=== PATIENT | male | born 1980 | race Caucasian/White ===

== ENCOUNTER 2017-12-06 08:59 | Day surgery (SDC) | payer OTHER ==
[2017-12-05 09:59] VITALS: BMI 29.7
--- NOTE | 2017-12-06 02:04 | HP ---
HISTORY OF PRESENT ILLNESS: Mr. Akbar has a protracted course of right lower extremity, lumbar radi culopathy and manifest clearly with an L5 pattern of pain MRI on disk that reports a right-side d eccentric L4 disk protrusion, impacting the descending right L5 nerve root. We treated this quite completely conservative measures with medications, therapy, and injections, which have provided some limited relief, but nothing long lasting. He has been out of work for this period of time and hopes to treat this surgically. PAST MEDICAL HISTORY: Significant for nothing. PAST SURGICAL HISTORY: Left shoulder, unspecified. CURRENT MEDICATIONS: Gabapentin. ALLERGIES: No known drug allergies. PHYSICAL EXAMINATION: The patient is alert and oriented x3. Gait is significantly antalgic. Lower extremity motor exam is normal. ASSESSMENT: Lumbar radiculopathy and lumbar disk herniation. PLAN: Dr. Calvert met with the patient, reviewed imaging and advocated for a right L4 diskectomy. He explained to the patient the risks, benefits, and alternatives to the procedure. The patient express ed understanding and would like to move forward with surgery as discussed. I do believe the patient is mentally competent and capable of making medical decisions for himself and moving forward with the surgery as planned. Sagar Gross PA-C, dictating for Dr. Calvert.
== END 2017-12-06 10:08 | disposition home or self-care (01) ==
LOC: SDC 08:59
PROVIDERS: ATTEND Neurological Surgery
DX: M51.16 Intervertebral disc disorders with radiculopathy, lumbar region (principal); Z79.899 Other long term (current) drug therapy; Z53.8 Procedure and treatment not carried out for other reasons

== ENCOUNTER 2018-01-15 11:29 | Day surgery (SDC) | payer OTHER ==
[2018-01-12 14:49] VITALS: BMI 30.8
[~2018-01-15 11:29] MED LIST: Dexamethasone 20 MG/5 ML VIAL ONE; Glycopyrrolate 0.2 MG/ML 5 ML SYRINGE ONE; Lidocaine 1% PF 5 ML VIAL ONE; Ondansetron HCl/PF 4 MG/2 ML Vial ONE; PROPOFOL 200 MG/20 ML VIAL ONE; PROVENTIL INHALER 6.7 G (200 INHALATIONS) ONE
[2018-01-15] MEDS ORDERED: Thrombin 5000 UNITS/5 ML VIAL ONE (11:50)
[2018-01-15] MEDS ORDERED: Bupivacaine HCl 0.5%/Epinephrine 1:200,000/PF 30 ml Vial ONE (11:50)
[2018-01-15] MEDS ORDERED: CEFAZOLIN/Water 2 GM/20 ML SYRINGE ONE ×2 (11:55→15:43)
[2018-01-15] MEDS ORDERED: Midazolam HCl 2 mg/2 ml Vial ONE (12:06)
[2018-01-15] MEDS ORDERED: Fentanyl 100 MCG/2 ML VIAL ONE ×3 (12:13→14:14)
[2018-01-15] MEDS ORDERED: Ketorolac Tromethamine 30 MG/ML VIAL ONE (13:55)
[2018-01-15] MEDS ORDERED: HYDROcodone/Acetaminophen 5/325 mg Tablet ONE (14:50)
[2018-01-15] MEDS ORDERED: Cyclobenzaprine 10 MG TAB ONE (15:36)
--- NOTE | 2018-01-16 00:30 | OP ---
DATE OF PROCEDURE: 01/15/2018 SURGEON: Andry Calvert M.D. PORTER USED CAR LOT: Sagar Gross PA-C INDICATION: Pain. DIAGNOSIS: Lumbar radiculopathy. PROCEDURE PERFORMED: Left L4-L5 hemilaminectomy, medial facetectomy, decompression. ANESTHESIA: General. TECHNIQUE: The patient was brought into the operating room and placed under general anesthesia. He was flipped from a supine to a prone position on the operating room table. A linear incision was tony nned over the L4-L5 segment. After prepping and draping and after an appropriate operative pause, th e incision was created. The soft tissues were swept left of midline. A self-retaining retractor was placed in the wound for optimal exposure. After confirming the appropriate level with C-arm fluoros copy, a high-speed cutting drill bit as well as 2, 3 and 4-mm Kerrisons were then used to perform a l aminectomy at the L4-L5 interface. The laminectomy was extended laterally to encompass the medial as pect of the facet joint. After complete decompression, the wound was irrigated. Hemostasis was main tained throughout. The wound was then closed in anatomic layers and a pressure dressing was applied. There were no known procedural complications.
== END 2018-01-15 16:00 | disposition home or self-care (01) ==
LOC: SDC 11:29
PROVIDERS: ATTEND Neurological Surgery
PROC: 01NB0ZZ Release Lumbar Nerve, Open Approach (ICD-10-PCS; principal; 2018-01-15)
DX: M54.16 Radiculopathy, lumbar region (principal)
CPT/HCPCS: 76001; 96374; J0131; J0670; J1100; J1885; J2001; J2250; J2405; J2704; J3010